=== PATIENT | female | born 1960 | race Caucasian/White ===

== ENCOUNTER 2017-10-11 09:33 | Emergency (ER) | payer BC ==
[~2017-10-11] VITALS: Ht 160 cm; Wt 59.0 kg
[2017-10-11 09:34] VITALS: BP 185/91; PULSE 91; RESP 14; TEMP 98.1; O2SAT 98
[2017-10-11] MEDS ORDERED: MEDI220T PO (11:21)
[2017-10-11] MEDS ORDERED: CYCL7.5T33 PO (11:21)
--- NOTE | 2017-10-11 11:23 | PD ---
HPI . Right leg pain Chief Complaint: Pain: Acute or Chronic Time Seen by Provider: 10:25 Travel History International Travel<30 days: No Contact w/Intl Traveler<30days: No Traveled to known affect area: No History of Present Illness HPI 56-year-old female presents emergency department for evaluation of right leg pain 2 weeks. Patient is ambulatory without limp. 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 Patient states she has been tolerating the pain. Patient denies any falls, injuries, traumas to the area. Patient states she is right side dominant and has been very busy and active moving and working so she might have overuse that muscle. Patient denies any fever, chills, chest pain, shortness breath, malaise. Patient denies any major medical history and doesn't take any daily medication. PFSH Past Medical History Medical History: Denies Significant Hx Influenza Vaccination: No ?: Not Menopausal: Yes Past Surgical History Section: Yes (X3) Social History Alcohol Use: Yes (MODERATELY) Tobacco Use: Yes (1/3 PPD) Substance Use: No Allergies-Medications (Allergen,Severity, Reaction): Coded Allergies: No Known Allergies (Unverified , 10/11/17) Reported Meds & Prescriptions Reported Meds & Active Scripts Active Flexeril (Cyclobenzaprine HCl) 7.5 Mg Tab 7.5 Mg PO TID Naproxen Sodium 220 Mg Tab 440 Mg PO BID PRN Review of Systems Except as stated in HPI: all other systems reviewed are Neg Physical Exam Narrative GENERAL: Well-nourished, well-developed 56-year-old female patient in no acute distress. Nontoxic appearing. SKIN: Focused skin assessment warm/dry. HEAD: Normocephalic. Atraumatic. EYES: No scleral icterus. No injection or drainage. NECK: Supple, trachea midline. No JVD or lymphadenopathy. CARDIOVASCULAR: Regular rate and rhythm without murmurs, gallops, or rubs. RESPIRATORY: Breath sounds equal bilaterally. No accessory muscle use. GASTROINTESTINAL: Abdomen soft, non-tender, nondistended. MUSCULOSKELETAL: Range of motion noted in right lower extremity. No obvious deformity, ecchymosis, erythema, cyanosis, or edema. BACK: Nontender without obvious deformity. No CVA tenderness. Data Data Last Documented VS Vital Signs Date Time Temp Pulse Resp B/P (MAP) Pulse Ox O2 Delivery O2 Flow Rate FiO2 10/11/17 11:43 10/11/17 11:31 69 16 97 Room Air 10/11/17 09:34 98.1 Orders Orders Ketorolac Inj (Toradol Inj) (10/11/17 11:30) Orphenadrine Inj (Norflex Inj) (10/11/17 11:30) Ed Discharge Order (10/11/17 11:23) [facility] Medical Decision Making Medical Screen Exam Complete: Yes Emergency Medical Condition: Yes Differential Diagnosis Differential diagnoses include but not limited to muscle strain, muscle sprain, sciatica, DVT, fracture Narrative Course 56-year-old female with full range of motion to bilateral lower extremities, no erythema or edema noted. Denies any shortness of breath or chest pain. Denies any major medical history. 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 The presentation is consistent with overuse of the muscle. The patient will be given an IM injection of Toradol and Norflex and discharged home with prescription for Flexeril and naproxen. Patient is requesting a work note to take the next week off of work to help her body rest. Patient is given a work note. Patient discharged home with instructions to return the emergency Department with any worsening condition. Diagnosis Primary Impression: Right leg pain Referrals: Primary Care Physician Patient Instructions: General Instructions, Leg Pain (ED) Departure Forms: Tests/Procedures, Work Release Enter return to work date: Oct 16, 2017 Additional Instructions: Please return to emergency department if your symptoms return or worsen. Obtain and follow up with your primary care provider. Take medications as prescribed. May use ice or heating pads to help with pain management. Med/Other Pt SpecificInfo: Prescription(s) given Scripts Cyclobenzaprine (Flexeril) 7.5 Mg Tab 7.5 MG PO TID for Muscle Spasm, #20 TAB 0 Refills Prov: Lily Guerrero 10/11/17 Naproxen Sodium (Naproxen Sodium) 220 Mg Tab 440 MG PO BID Y for Pain Management, #20 TAB 0 Refills Prov: Lily Guerrero 10/11/17 Disposition: 01 DISCHARGE HOME Condition: Stable Lily Guerrero Oct 11, 2017 11:23
[2017-10-11] MEDS ORDERED: KETOROLAC TROMETHAMINE 60 MG/2 ML (IM) VIAL IM ONE (11:30)
[2017-10-11] MEDS ORDERED: ORPHENADRINE INJ 60 MG/2 ML AMP IM ONE (11:30)
[2017-10-11 11:31] VITALS: BP 155/81; PULSE 69; RESP 16; O2SAT 97
== END 2017-10-11 11:44 | disposition home or self-care (01) ==
LOC: NEPD 09:33
DX: M79.604 Pain in right leg (principal); F17.200 Nicotine dependence, unspecified, uncomplicated
CPT/HCPCS: 96372; 99284; J1885; J2360